=== PATIENT | female | born 1970 | race Hispanic/Latino ===

== ENCOUNTER 2019-07-11 22:14 | Emergency (ER) | payer OTHER ==
--- OUTSIDE RECORDS SUMMARY | 2019-07-11 22:16 | XMS REPORT | Summary of Care ---
:1970 Author Organization [facility] - [facility] Address [address] [place] [address] Care Team Providers Name Role Phone Fabian Leon Primary Care Provider Reason for Visit Reason Comments Abdominal Pain Fever Auth/Cert Status Reason Specialty Diagnoses / Referred By Referred To Procedures Contact Contact Emergency Medicine [facility] [address] [place] [address] Encounter Details Date Type Department Care Team Description 07/05/2019 Emergency ADC-Emergency Mirza Mora, Pyelonephritis ( Primary Dx); Department PAC Abdominal pain, unspecified abdominal location [address] [place] [address] [place] [address] [facility] [address] [place] [address] Allergies No Known Allergiesdocumented as of this encounter (statuses as of 07/05/2019) Medications Medication Sig Dispensed Refills Start Date End Date Status cephALEXin (KEFLEX) Take 1 capsule 30 capsule 0 07/05/2019 07/15/2019 Active 500 mg by mouth 3 capsuleIndications: (three) times Pyelonephritis daily for 10 days. ondansetron (ZOFRAN Take 1 tablet 10 tablet 0 07/05/2019 Active ODT) 4 mg by mouth every disintegrating 8 (eight) hours tabletIndications: as needed for Pyelonephritis Nausea and Vomiting (N/V). documented as of this encounter (statuses as of 07/05/2019) Active Problems Not on filedocumented as of this encounter (statuses as of 07/05/2019) Social History Tobacco Use Types Packs/Day Years Used Date Never Assessed Sex Assigned at Date Recorded Not on file Job Start Date Occupation Industry Not on file Not on file Not on file Travel History Travel Start Travel End No recent travel history available. documented as of this encounter Last Filed Vital Signs Vital Sign Reading Time Taken Comments Blood Pressure 128/69 07/05/2019 8:00 PM [facility] Pulse 103 07/05/2019 8:00 PM [employer] Temperature 38.4 C (101.1 F) 07/05/2019 7:19 PM [employer] [facility] Respiratory Rate 19 07/05/2019 8:00 PM [employer] [facility] Oxygen Saturation 96% 07/05/2019 8:00 PM [employer] Inhaled Oxygen Concentration - - Weight 77.1 kg (170 lb) 07/05/2019 5:06 PM [employer] [facility] [facility] Height 144.8 cm (4' 9") 07/05/2019 5:06 PM [employer] [facility] Body Mass Index 36.79 07/05/2019 5:06 PM [employer] documented in this encounter Discharge Instructions AttachmentsThe following attachments cannot be sent through Care Everywhere.Pyelonephritis, Discharge Instructions for ([place])documented in this encounter Plan of Treatment Name Type Priority Associated Diagnoses Date/Time BLOOD CULTURE SCREEN LAB STAT Abdominal pain, 07/05/2019 6:32 PM [facility] unspecified abdominal location BLOOD CULTURE SCREEN LAB STAT Abdominal pain, 07/05/2019 6:03 PM [employer] unspecified abdominal location URINE CULTURE LAB STAT Abdominal pain, 07/05/2019 6:09 PM [employer] unspecified abdominal location Name Type Priority Associated Diagnoses Order Schedule BLOOD CULTURE SCREEN LAB Routine Abdominal pain, ONCE for 1 Occurrences unspecified abdominal starting 07/05/2019 until location 07/05/2019 BLOOD CULTURE SCREEN LAB Routine Abdominal pain, ONCE for 1 Occurrences unspecified abdominal starting 07/05/2019 until location 07/05/2019 URINE CULTURE LAB Routine Abdominal pain, ONCE for 1 Occurrences unspecified abdominal starting 07/05/2019 until location 07/05/2019 Health Maintenance Due Date Last Done Comments DTaP,Tdap,and Td Vaccines (1 - 01/11/1983 Tdap) PAP SMEAR 01/11/1993 Breast Cancer Screening 2012 (MAMMOGRAM) INFLUENZA VACCINE (#1) 2019 PNEUMOCOCCAL 0-64 YEARS COMBINED Aged Out No longer eligible based on SERIES patient's age to complete this topic documented as of this encounter Procedures Procedure Name Priority Date/Time Associated Diagnosis Comments POCT TEST ANTONIO 07/05/2019 6:23 Abdominal pain, Results for this PM [employer] unspecified procedure are in abdominal location the results section. ADC,CLC OR LCC ONLY - STAT 07/05/2019 6:03 Abdominal pain, Results for this INFLUENZA A & B PM [employer] [facility] unspecified procedure are in DIRECT ANTIGEN abdominal location the results section. URINALYSIS STAT 07/05/2019 6:03 Abdominal pain, Results for this PM [employer] unspecified procedure are in abdominal location the results section. CBC WITH DIFFERENTIAL STAT 07/05/2019 6:02 Abdominal pain, Results for this PM [employer] unspecified procedure are in abdominal location the results section. CBC WITH DIFFERENTIAL Routine 07/05/2019 6:02 Abdominal pain, Results for this PM [employer] unspecified procedure are in abdominal location the results section. COMP. METABOLIC PANEL STAT 07/05/2019 6:02 Abdominal pain, Results for this (22285) PM [employer] unspecified procedure are in abdominal location the results section. MAGNESIUM STAT 07/05/2019 6:02 Abdominal pain, Results for this PM [employer] unspecified procedure are in abdominal location the results section. documented in this encounter Results POCT TEST (07/05/2019 6:23 PM [employer]) Pathologist [facility] POCT PREG Negative On board controls acceptable Yes with C Line POCT PREG LOT # [id number] POCT PREG TEST DATE 12/12/2020 Specimen Urine - URINE, CLEAN CATCH ADC,CLC OR LCC ONLY - INFLUENZA A & B DIRECT ANTIGEN (07/05/2019 6:03 PM [facility] [facility] [facility]) Pathologist [facility] Influenza A Negative Negative [facility] Influenza B Negative Negative [facility] Specimen Swab - NARE, LEFT SIDE Performing Organization Address City/State/Zipcode Phone Number [facility] CLIA: [id number], [address] [place] [address] URINALYSIS (07/05/2019 6:03 PM [employer] [facility]) Pathologist [facility] APPEARANCE Cloudy (A) Clear [facility] COLOR Yellow Yellow [facility] PH 7.0 4.8 - 8.0 [facility] SP GRAVITY 1.016 1.003 - 1.030 [facility] GLU U QUAL Normal Normal [facility] BLOOD NegativeComment: Negative [facility] INTERFERENCE FROM HOSPITAL LABORATORY ASCORBIC ACID MAY CAUSE FALSE NEGATIVE RESULT KETONES Negative Negative [facility] PROTEIN Negative Negative [facility] UROBILIN Normal Normal [facility] BILIRUBIN Negative Negative [facility] NITRITE Negative Negative [facility] LEUK JEANNETTE 500/uL (A) Negative [facility] RBC/HPF 20 (H) 0 - 3 HPF [facility] WBC/HPF >182 (H) 0 - 5 HPF [facility] BACTERIA Few (A) Negative [facility] MUCOUS Slight (A) Negative LPF [facility] SQ EPITH 2 HPF [facility] WBC CLUMPS 4 (H) <=1 HPF [facility] Specimen Urine - URINE, CLEAN CATCH Performing Organization Address City/State/Zipcode Phone Number [facility] CLIA: [id number], [address] [place] [address] CBC WITH DIFFERENTIAL (07/05/2019 6:02 PM [employer]) WBC 11.24 (H) 4.30 - 11.10 [facility] 10*3/L [facility] RBC 4.01 3.93 - 5.25 [facility] 10*6/L [facility] HGB 12.3 11.6 - 15.0 [facility] g/dL [facility] HCT 35.9 35.7 - 45.2 % [facility] MCV 89.5 80.6 - 95.5 fL [facility] MCH 30.7 25.9 - 32.8 pg [facility] MCHC 34.3 31.6 - 35.1 [facility] g/dL [facility] RDW-SD 42.4 39.0 - 49.9 fL [facility] RDW-CV 13.0 12.0 - 15.5 % [facility] PLT 208 166 - 358 [facility] 10*3/L [facility] MPV 10.3 9.5 - 12.9 fL [facility] NRBC/100 WBC 0.0 0.0 - 10.0 /100 [facility] WBCs [facility] NRBC x10^3 <0.01 10*3/L [facility] GRAN MAT (NEUT) % 88.8 % [facility] IMM GRAN % 0.50 % [facility] LYMPH % 5.9 % [facility] MONO % 4.0 % [facility] EOS % 0.6 % [facility] BASO % 0.2 % [facility] GRAN MAT x10^3(ANC) 9.98 (H) 1.88 - 7.09 [facility] 10*3/uL HOSPITAL [facility] IMM GRAN x10^3 0.06 0.00 - 0.06 [facility] 10*3/uL HOSPITAL [facility] LYMPH x10^3 0.66 (L) 1.32 - 3.29 [facility] 10*3/uL [facility] MONO x10^3 0.45 0.33 - 0.92 [facility] 10*3/uL [facility] EOS x10^3 0.07 0.03 - 0.39 [facility] 10*3/uL [facility] BASO x10^3 <0.03 0.01 - 0.[address]/[facility] LABORATORY Specimen Blood - ARM, LEFT Performing Organization Address City/[facility]/Zipcode Phone Number [facility] CLIA: [id number], [address] [place] [address] MAGNESIUM (07/05/2019 6:02 PM [employer] [facility]) MAGNESIUM 1.9 1.7 - 2.4 mg/dL [facility] Specimen Blood - ARM, LEFT Performing Organization Address City/[facility]/Zipcode Phone Number [facility] CLIA: [id number], [address] [place] [address] COMP. METABOLIC PANEL (20556) (07/05/2019 6:02 PM [facility] [facility] [facility]) NA 140 135 - 145 [facility] mmol/L [facility] K 3.5 3.5 - 5.0 [facility] mmol/L [facility] CL 102 98 - 108 mmol/L [facility] CO2 TOTAL 28 23 - 31 mmol/L [facility] AGAP 10 2 - 16 [facility] BUN 15 7 - 23 mg/dL [facility] GLUCOSE 163 (H) 70 - 110 mg/dL [facility] CREATININE 0.56 0.50 - 1.04 [facility] mg/dL [facility] TOTAL BILI 0.6 0.1 - 1.1 mg/dL [facility] CALCIUM 9.3 8.6 - 10.6 [facility] mg/dL [facility] T PROTEIN 7.6 6.3 - 8.2 g/dL [facility] ALBUMIN 4.3 3.5 - 5.0 g/dL [facility] ALK PHOS 154 (H) 34 - 122 U/L [facility] ALTv 27 5 - 35 U/L [facility] AST(SGOT) 63 (H) 13 - 40 U/L [facility] eGFR Calculation 116.0 mL/min/1.73m2 [facility] [place]) eGFR Calculation 140.6 mL/min/1.73m2 [facility] () [facility] Specimen Blood - ARM, LEFT Narrative Performed At Association of Glomerular Filtration Rate (GFR) [facility] and Staging of Kidney Disease* + + +- + | GFR (mL/min/1.73 m2) | With Kidney Damage | Without Kidney Damage + + +- + | >90 | Stage one | Normal + + +- + | 60-89 | Stage two | Decreased GFR + + +- + | 30-59 | Stage three | Stage three + + +- + | 15-29 | Stage four | Stage four + + +- + | <15 (or dialysis) | Stage five | Stage five + + +- + *Each stage assumes the associated GFR level has been in effect for at least three months. Stages 1 to 5, with or without kidney disease, indicate chronic kidney disease. Notes: Determination of stages one and two (with eGFR >59mL/min/1.73 m2) requires estimation of kidney damage for at least three months as defined by structural or functional abnormalities of the kidney, manifested by either: Pathological abnormalities or Markers of kidney damage (including abnormalities in the composition of the blood or urine or abnormalities in imaging tests). Performing Organization Address City/State/Zipcode Phone Number [facility] CLIA: [id number], [address] [place] [address] [facility] [address] documented in this encounter Visit Diagnoses Diagnosis Pyelonephritis - Primary Pyelonephritis, unspecified Abdominal pain, unspecified abdominal location documented in this encounter Administered Medications Medication Order MAR Action Action Date Dose Rate Site acetaminophen (TYLENOL) tablet Given 07/05/2019 6:16 PM [facility] 1,000 mg 1,000 mg 1,000 mg, Oral, ONCE, 1 dose, Mon07/05/19 at 1915, Routine cefTRIAXone (ROCEPHIN) 1,000 mg in NaCl Given 07/05/2019 7:12 PM [facility] [facility] [facility] 1,000 mg 0.9% (NS) 50 mL MINI-BAG 1,000 mg, IV Piggyback, ONCE, 1 dose, Mon07/05/19 at 2015, 50 mL, Reason for Anti-Infective: Documented Infection, Documented Infection Site: Urine, Duration of Therapy: Other (see Comments) ketorolac (TORADOL) injection 30 mg Given 07/05/2019 7:13 PM [employer] 30 mg 30 mg, Slow IV Push, ONCE, 1 dose, Mon07/05/19 at 2015, ANTONIO, cleaning team member approving Restricted medication: Mirza MORA NaCl 0.9% (NS) bolus infusion New Bag 07/05/2019 6:13 PM [employer] [facility] 1,000 mL 999 mL/hr 1,000 mL at 999 mL/hr, 1,000 mL, IV Infusion, ONCE, 1 dose, Mon07/05/19 at 1900, STAT ondansetron (ZOFRAN (PF)) injection 4 mg Given 07/05/2019 6:13 PM [employer] 4 mg 4 mg, Slow IV Push, ONCE, 1 dose, Mon07/05/19 at 1900, ANTONIO ondansetron (ZOFRAN (PF)) injection 4 mg Given 07/05/2019 7:38 PM [employer] 4 mg 4 mg, Slow IV Push, ONCE, 1 dose, Mon07/05/19 at 2045, ANTONIO documented in this encounter documented as of this encounter
--- OUTSIDE RECORDS SUMMARY | 2019-07-11 22:16 | XMS REPORT ---
:1970 Author Organization [facility] Address [address] [place] [address] Dr. Valencia [address] [place] [address] Care Team Providers Name Role Phone Unavailable Unavailable Unavailable Problems This patient has no known problems. Allergies, Adverse Reactions, Alerts This patient has no known allergies or adverse reactions. Medications This patient has no known medications.
[2019-07-11 23:17] LABS: Absolute Lymphocytes (CBC) 2.3 K/uL (0.7-4.9); Basophils % 0.6 % (0-1.3); Hematocrit 38.6 % (36.0-45.0); Lymphocytes % 18.9 % (15.3-44.8); MPV 7.8 fL (7.6-11.3); RBC Red Blood Cell Count 4.32 M/uL (3.86-4.86)
[2019-07-11 23:51] LABS: ALT/SGPT 35 U/L (12-78); AST/SGOT 21 U/L (15-37); Albumin 3.5 g/dL (3.4-5.0); Alkaline Phosphatase 143 U/L (45-117); BUN Blood Urea Nitrogen 9 mg/dL (7-18); Bicarbonate 30 mmol/L (21-32); Bilirubin Direct < 0.1 mg/dL (0-0.2); Bilirubin Total 0.2 mg/dL (0.2-1.0); Glucose Level 137 mg/dL (74-106); Lipase 147 U/L (73-393); Potassium 3.7 mmol/L (3.5-5.1); Protein, Total 8.1 g/dL (6.4-8.2); Sodium Level 139 mmol/L (136-145)
[2019-07-11] MEDS ORDERED: NA CHLORIDE 0.9% 1,000 ML ONE (23:51)
[2019-07-11] MEDS ORDERED: MORPHINE 4 MG/ML SYR ONE (23:51)
[2019-07-11] MEDS ORDERED: ONDANSETRON 4 MG/2 ML VIAL ONE (23:51)
[2019-07-12 00:07] LABS: Blood Morphology Comment NOT SEEN (NOT SEEN); Platelet Estimate ADEQ
--- NOTE | 2019-07-12 01:12 | EDPHYS ---
Physician Documentation [facility] Name: Kerri Aguilar Age: 49 yrs Sex: Female : 1970 Arrival Date: 07/11/2019 Time: 22:16 Bed 16 Private MD: ED Physician Ramakrishna Johnson HPI: 07/12 01:24 This 49 yrs old Female presents to ER via Ambulatory with complaints of kb Abdominal Pain. 01:24 The patient presents with abdominal pain that is diffuse. Onset: The symptoms/episode kb began/occurred today. The symptoms do not radiate. Associated signs and symptoms: none. The symptoms are described as constant. Modifying factors: The symptoms are alleviated by nothing, the symptoms are aggravated by nothing. Severity of pain: At its worst the pain was moderate in the emergency department the pain is unchanged. The patient has not experienced similar symptoms in the past. The patient has not recently seen a physician. Pt reports she was diagnosed with a UTI/kidney infection a few days ago and started on keflex. Today having abd pain. . 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 - Social history:: Smoking status: Patient denies any tobacco usage or history of. ROS: 07/12 01:24 Constitutional: Negative for fever, chills, and weight loss, Neck: Negative for injury, kb pain, and swelling, Cardiovascular: Negative for chest pain, palpitations, and edema, Respiratory: Negative for shortness of breath, cough, wheezing, and pleuritic chest pain, Back: Negative for injury and pain, MS/Extremity: Negative for injury and deformity, Skin: Negative for injury, rash, and discoloration, Neuro: Negative for headache, weakness, numbness, tingling, and seizure. Abdomen/GI: Positive for abdominal pain. Exam: 01:24 Constitutional: This is a well developed, well nourished patient who is awake, alert, kb and in no acute distress. Head/Face: Normocephalic, atraumatic. ENT: Nares patent. No nasal discharge, no septal abnormalities noted. Tympanic membranes are normal and external auditory canals are clear. Oropharynx with no redness, swelling, or masses, exudates, or evidence of obstruction, uvula midline. Mucous membranes moist. Neck: Trachea midline, no thyromegaly or masses palpated, and no cervical lymphadenopathy. Supple, full range of motion without nuchal rigidity, or vertebral point tenderness. No Meningismus. Chest/axilla: Normal chest wall appearance and motion. Nontender with no deformity. No lesions are appreciated. Cardiovascular: Regular rate and rhythm with a normal S1 and S2. No gallops, murmurs, or rubs. Normal PMI, no JVD. No pulse deficits. Respiratory: Lungs have equal breath sounds bilaterally, clear to auscultation and percussion. No rales, rhonchi or wheezes noted. No increased work of breathing, no retractions or nasal flaring. Back: No spinal tenderness. No costovertebral tenderness. Full range of motion. Skin: Warm, dry with normal turgor. Normal color with no rashes, no lesions, and no evidence of cellulitis. MS/ Extremity: Pulses equal, no cyanosis. Neurovascular intact. Full, normal range of motion. Neuro: Awake and alert, GCS 15, oriented to person, place, time, and situation. Cranial nerves II-XII grossly intact. Motor strength 5/5 in all extremities. Sensory grossly intact. Cerebellar exam normal. Normal gait. 01:24 Abdomen/GI: Inspection: abdomen appears normal, Bowel sounds: normal, in all quadrants, Palpation: soft, in all quadrants, mild abdominal tenderness, in the right upper quadrant, left upper quadrant and left lower quadrant. Vital Signs: 07/11 22:44 BP 157 / 107; Pulse 82; Resp 16; Temp 97.8(O); Pulse Ox 100% on R/A; Weight 77.11 kg ao (R); Height 4 ft. 9 in. (144.78 cm); Pain 9/10; 07/12 00:17 BP 121 / 80; Pulse 80; Resp 16; Pulse Ox 100% on R/A; Pain 0/10; ao 07/11 22:44 Body Mass Index 36.79 (77.11 kg, 144.78 cm) ao MDM: 07/11 22:51 Patient medically screened. kb 07/12 01:23 Data reviewed: vital signs, nurses notes. Data interpreted: Pulse oximetry: on room air kb is 100 %. Interpretation: normal. Counseling: I had a detailed discussion with the patient and/or guardian regarding: the historical points, exam findings, and any diagnostic results supporting the discharge/admit diagnosis, lab results, radiology results, the need for outpatient follow up, a family practitioner, to return to the emergency department if symptoms worsen or persist or if there are any questions or concerns that arise at home. ED course: Pt tolerating PO intake. no complaints of pain at this time. 07/11 22:59 Order name: Basic Metabolic Panel; Complete Time: 00:03 kb 07/11 22:59 Order name: CBC with Diff kb 07/11 22:59 Order name: US Abdomen Limited kb 07/11 22:59 Order name: Hepatic Function; Complete Time: 00:03 kb 07/11 22:59 Order name: Lipase; Complete Time: 00:03 kb 07/12 00:08 Order name: Manual Differential; Complete Time: 00:09 EDMS 07/11 22:59 Order name: IV Saline Lock; Complete Time: 23:09 kb 07/11 22:59 Order name: Labs collected and sent; Complete Time: 23:09 kb 07/12 00:04 Order name: CT Abd/Pelvis - IV Contrast Only kb Administered Medications: 00:00 Drug: NS 0.9% 1000 ml Route: IV; Rate: 1000 ml; Site: right antecubital; ao 01:14 Follow up: IV Status: Completed infusion; IV Intake: 1000ml ao 00:00 Drug: Zofran (Ondansetron) 4 mg Route: IVP; Site: right antecubital; ao 01:14 Follow up: Response: No adverse reaction ao 00:00 Drug: morphine 4 mg {Note: Rass 0.} Route: IVP; Site: right antecubital; ao 01:13 Follow up: Response: No adverse reaction ao 01:14 Follow up: Response: RASS: Alert and Calm (0) ao 01:25 Drug: Rocephin 1 grams Route: IV; Rate: calculated rate; Site: right antecubital; ao Disposition: 01:55 Co-signature as Attending Physician, Ramakrishna Johnson MD. [email or web address] Disposition: 07/12/19 01:07 Discharged to Home. Impression: Acute tubulo-interstitial nephritis. - Condition is Stable. - Discharge Instructions: Pyelonephritis, Adult, [id number]. - Prescriptions for cefpodoxime 200 mg Oral Tablet - take 1 tablet by ORAL route every 12 hours for 10 days with food; 20 tablet. - Medication Reconciliation Form, Thank You Letter, Antibiotic Education, Prescription Opioid Use form. - Follow up: Emergency Department; When: As needed; Reason: Worsening of condition. Follow up: Private Physician; When: 2 - 3 days; Reason: Recheck today's complaints, Continuance of care, Re-evaluation by your physician. Signatures: Dispatcher [employer] EDIsabel Traore, RADHA-Dom TAYLORP-Ramakrishna Bruce MD MD pkl Ortiz, Alex RN RN ao Corrections: (The following items were deleted from the chart) 01:40 01:07 07/12/2019 01:07 Discharged to Home. Impression: Acute tubulo-interstitial ao nephritis. Condition is Stable. Forms are Medication Reconciliation Form, Thank You Letter, Antibiotic Education, Prescription Opioid Use. Follow up: Emergency Department; When: As needed; Reason: Worsening of condition. Follow up: Private Physician; When: 2 - 3 days; Reason: Recheck today's complaints, Continuance of care, Re-evaluation by your physician. kb
--- NOTE | 2019-07-12 01:12 | ER ---
Nurse's Notes [facility] Name: Kerri Aguilar Age: 49 yrs Sex: Female : 1970 Arrival Date: 07/11/2019 Time: 22:16 Bed 16 Private MD: Diagnosis: Acute tubulo-interstitial nephritis Presentation: 07/11 22:44 Chief complaint: Patient states: Abdominal pain started at 1530. Patient denies ao vomiting and nausea or diarrhea. Patient was Dx with a UTI and Kidney infection last week and still on antibiotics. Coronavirus screen: The patient has NOT traveled to [place] in the past 14 days. Proceed with normal triage procedures. The patient has NOT had contact with known and/or suspected case of Coronavirus. Proceed with normal triage procedures. Ebola Screen: Patient negative for fever greater than or equal to 101.5 degrees Fahrenheit, and additional compatible Ebola Virus Disease symptoms Patient denies exposure to infectious person. Patient denies travel to an Ebola-affected area in the 21 days before illness onset. Initial Sepsis Screen: Does the patient meet any 2 criteria? No. Patient's initial sepsis screen is negative. Does the patient have a suspected source of infection? No. Patient's initial sepsis screen is negative. Risk Assessment: Do you want to hurt yourself or someone else? Patient reports no desire to harm self or others. 22:44 Method Of Arrival: Ambulatory ao 22:44 Acuity: [place] 3 ao 07/12 00:20 Onset of symptoms is unknown. 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 - Social history:: Smoking status: Patient denies any tobacco usage or history of. Screenin/28 00:20 Abuse screen: Denies threats or abuse. Denies injuries from another. Nutritional ao screening: No deficits noted. Tuberculosis screening: No symptoms or risk factors identified. Fall Risk None identified. Assessment: 07/11 23:10 General: Appears in no apparent distress. uncomfortable, Behavior is calm, cooperative, ao appropriate for age. Pain: Complains of pain in abdomen. Neuro: Level of Consciousness is awake, alert, obeys commands, Oriented to person, place, time, situation, Appropriate for age Moves all extremities. Full function Speech is normal. Cardiovascular: Capillary refill < 3 seconds Patient's skin is warm and dry. Respiratory: Airway is patent Respiratory effort is even, unlabored, Respiratory pattern is regular, symmetrical. GI: Bowel sounds present X 4 quads. Abd is soft and non tender Abd is non tender. GI: Reports epigastric pain. : No signs and/or symptoms were reported regarding the genitourinary system. EENT: No signs and/or symptoms were reported regarding the EENT system. Derm: No signs and/or symptoms reported regarding the dermatologic system. Skin is intact, Skin temperature is warm. Musculoskeletal: No signs and/or symptoms reported regarding the musculoskeletal system. 07/12 00:17 Reassessment: Patient appears in no apparent distress at this time. Patient and/or ao family updated on plan of care and expected duration. Pain level reassessed. 01:39 Reassessment: Patient appears in no apparent distress at this time. DC instructions ao given to patient. Patient agree with POC and to follow up. Vital Signs: 07/11 22:44 BP 157 / 107; Pulse 82; Resp 16; Temp 97.8(O); Pulse Ox 100% on R/A; Weight 77.11 kg ao (R); Height 4 ft. 9 in. (144.78 cm); Pain 9/10; 07/12 00:17 BP 121 / 80; Pulse 80; Resp 16; Pulse Ox 100% on R/A; Pain 0/10; ao 07/11 22:44 Body Mass Index 36.79 (77.11 kg, 144.78 cm) ao ED Course: 07/11 22:16 Patient arrived in ED. ag3 22:44 Marin Llamas, RN is Primary Nurse. ao 22:47 Triage completed. ao 22:49 Arm band placed on right wrist. Patient placed in an exam room, on a stretcher, on ao oxygen, on pulse oximetry, Patient notified of wait time. 22:50 Isabel Huston FNP-C is PHCP. kb 22:50 Ramakrishna Johnson MD is Attending Physician. kb 23:09 Inserted saline lock: 20 gauge in left antecubital area, using aseptic technique. Blood mt collected. 23:24 US Abdomen Limited In Process Unspecified. EDMS 07/12 00:20 Patient has correct armband on for positive identification. Pulse ox on. NIBP on. ao 00:51 CT Abd/Pelvis - IV Contrast Only In Process Unspecified. EDMS 01:38 No provider procedures requiring assistance completed. IV discontinued, intact, ao bleeding controlled, No redness/swelling at site. Pressure dressing applied. Administered Medications: 00:00 Drug: NS 0.9% 1000 ml Route: IV; Rate: 1000 ml; Site: right antecubital; ao 01:14 Follow up: IV Status: Completed infusion; IV Intake: 1000ml ao 00:00 Drug: Zofran (Ondansetron) 4 mg Route: IVP; Site: right antecubital; ao 01:14 Follow up: Response: No adverse reaction ao 00:00 Drug: morphine 4 mg {Note: Rass 0.} Route: IVP; Site: right antecubital; ao 01:13 Follow up: Response: No adverse reaction ao 01:14 Follow up: Response: RASS: Alert and Calm (0) ao 01:25 Drug: Rocephin 1 grams Route: IV; Rate: calculated rate; Site: right antecubital; ao Intake: 01:14 IV: 1000ml; Total: 1000ml. ao Outcome: 01:07 Discharge ordered by . kb 01:39 Discharged to home ambulatory. ao 01:39 Condition: stable 01:39 Discharge instructions given to patient, Instructed on discharge instructions, follow up and referral plans. Demonstrated understanding of instructions, follow-up care, medications, Prescriptions given X 1. 01:40 Patient left the ED. ao Signatures: Dispatcher [employer] EDNJ Isabel Huston, DIDI GARCIA-Marin Medel, SIL RN Osiris Smith mt, Alice ag3 Corrections: (The following items were deleted from the chart) 00:15 00:14 morphine 4 mg IVP in right antecubital ao ao
[2019-07-12] MEDS ORDERED: CEFTRIAXONE/SWI 1gm 1 GM/10 ML SYR ONE (01:24)
[2019-07-12 02:10] VITALS: TEMP 97.8; O2SAT 100
[2019-07-12 02:11] VITALS: BP 121/80
--- NOTE | 2019-07-12 08:26 | RAD REPORT ---
EXAM DESCRIPTION: US - Abdomen Exam Limited - 07/11/2019 11:24 pm CLINICAL HISTORY: ABD PAIN COMPARISON: No comparisons FINDINGS: No gallstones, sludge or other abnormalities within the gallbladder lumen. There is no wal l thickening or pericholecystic fluid. No common duct stone or biliary tree dilatation identified. IMPRESSION: Normal gallbladder and biliary tree ultrasound.
--- NOTE | 2019-07-15 14:52 | RAD REPORT ---
EXAM DESCRIPTION: CT - Abdomen Pelvis W Contrast - 07/12/2019 6:37 am CLINICAL HISTORY: The patient is 49 years old and is Female; ABD PAIN TECHNIQUE: Axial computed tomography images of the abdomen and pelvis with intravenous contrast. S agittal and coronal reformatted images were created and reviewed. This CT exam was performed using one or more of the following dose reduction techniques: automated exposure control, adjustment of t he mA and/or kV according to patient size, and/or use of iterative reconstruction technique. COMPARISON: No relevant prior studies available. FINDINGS: LUNG BASES: Unremarkable. No mass. No consolidation. ABDOMEN: LIVER: The liver is fatty. GALLBLADDER AND BILE DUCTS: No calcified stones. No ductal dilation. PANCREAS: No ductal dilation. No mass. SPLEEN: Unremarkable. ADRENALS: Unremarkable. No mass. KIDNEYS AND URETERS: A 1 cm left renal cyst is present. Subtle areas of peripheral low attenuati on throughout the right kidney are present. There is no hydronephrosis or hydroureter of either kidne y. STOMACH AND BOWEL: The stomach is decompressed. The small bowel is normal in caliber. Stool is p resent throughout colon. There is no mucosal thickening or evidence of bowel obstruction. Oral cont rast is noted within the mid to distal small bowel. PELVIS: APPENDIX: The appendix is normal in caliber without surrounding inflammation. BLADDER: Unremarkable. No mass. REPRODUCTIVE: A few nabothian cysts are present. The uterus and ovaries are otherwise unremarkab le. ABDOMEN and PELVIS: INTRAPERITONEAL SPACE: Unremarkable. No free air. No significant fluid collection. BONES/JOINTS: No acute fracture. SOFT TISSUES: The soft tissues are normal. VASCULATURE: Unremarkable. No abdominal aortic aneurysm. LYMPH NODES: Unremarkable. No enlarged lymph nodes. IMPRESSION: Findings suggestive of mild right pyelonephritis. 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 The interpreting radiologist is zenaida britoly responsible for the content of the report.
== END 2019-07-12 01:40 | disposition home or self-care (01) ==
LOC: ER 22:14
DX: N10 Acute pyelonephritis (principal); I10 Essential (primary) hypertension
CPT/HCPCS: 96361; 85025; 80048; 36415; 80076; 83690; 74177; 76705; 96375; 96374; 99284; Q9967; J0696; J7030; J2405